=== PATIENT | female | born 1950 | race Caucasian/White ===

== ENCOUNTER 2018-02-12 07:16 | Observation (INO) | payer MEDICARE, OTHER ==
[~2018-02-12] VITALS: Ht 157.5 cm; Wt 70.3 kg
[~2018-02-12 07:16] MED LIST: CLONAZEPAM 0.50.5 M1 PO; DUONEB 2.5-0.5 M3 ML INH; PROAIR HFA8.5 GM INH; PROTONIX40 M1 PO; TRAZODONE HCL50 MG PO; VENTOLIN HFA 1818 GM INH
[2018-02-12 08:17] VITALS: BP 150/81
--- NOTE | 2018-02-12 14:04 | EKG ---
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1950 Requested By: Jc De La Torre Order Number: [id number] Reading MD: Germán Corona Measurements Intervals [place] Rate: 85 P: 39 ID: [id number] QRS: 19 QRSD: 93 T: -14 QT: 371 QTc: 442 Interpretive Statements Sinus rhythm Abnormal R-wave progression, early transition Borderline T abnormalities, inferior leads Compared to ECG 07/06/2006 16:09:29 T-wave abnormality now present Electronically Signed On 02-12-2018 14:04:15 CDT by Germán Corona [email or web address] <ELECTRONICALLY SIGNED> By: Germán Corona MD, FAC 02/12/18 1404 0746 0746 Germán Corona MD, [facility] /EPI
[2018-02-12 14:40] VITALS: BP 168/74
[2018-02-12 20:00] VITALS: BP 188/92
[2018-02-12 21:00] VITALS: BP 188/92; BP 211/92
[2018-02-12 21:30] VITALS: BP 211/92
[2018-02-13] VITALS (10 sets, daily range): BP systolic 154–172; BP diastolic 65–80
[2018-02-13 05:17] LABS: HEMATOCRIT 37.8 % (37.0-47.0); HEMOGLOBIN 12.3 gm/dL (12.0-15.0)
[2018-02-13 05:29] LABS: POTASSIUM 4.5 mmol/L (3.5-5.1)
--- NOTE | 2018-02-13 07:22 | OP ---
[address] [address] OPERATIVE REPORT Name: MARLA MOJICA Room: [address] M.R.#: [id number] Admission: 02/12/18 Attend Phys: Jc De La Torre MD Discharge: Date of : 54 Report #: [id number] THIS REPORT FOR: //name// CC: DARRIUS De La Torre DATE OF SERVICE: 02/12/2018 PREOPERATIVE DIAGNOSES: Right ovarian cyst, abnormal ultrasound of uterus. POSTOPERATIVE DIAGNOSES: Right ovarian cyst, abnormal ultrasound of uterus, benign pathology per intraoperative consultation from pathologist. PROCEDURE: Laparoscopic-assisted bilateral salpingo-oophorectomy, vaginal hysterectomy. SURGEON: Jc De La Torre MD LOAN DOCUMENTS CLOSER: [place] [address]. ESTIMATED BLOOD LOSS: 100 mL. ANESTHESIA: General by endotracheal tube. COMPLICATIONS: None. DESCRIPTION OF PROCEDURE: Operative permit was in order. The patient was placed under general anesthesia, put in the dorsal lithotomy position, prepped and draped in usual manner. SCDs were in place and functioning. The bladder was drained with a Beatty catheter. The cervix was exposed and the anterior lip of cervix grasped with single tooth tenaculum. Cervix was dilated to admit a uterine manipulator device. This was advanced into the endometrial cavity and balloon was inflated. Tenaculum and speculum removed and this area was further draped. Gloves were changed and attention turned towards the abdomen. A 2 cm transverse incision was made just below the umbilicus and dissection carried out to the fascia, which was grasped with 2 [facility] clamps. The fascia was then opened transversely. Peritoneum was identified and opened sharply with Metzenbaum scissors. A Maria Teresa trocar was inserted through this incision and balloon was inflated. Laparoscope was inserted through the trocar and the lower abdomen and periumbilical area were noted to be free from adhesions. Inspection of the upper abdomen showed multiple adhesions between the bowel and the anterior abdominal wall. No evidence of injury to the bowel was noted at this point. The patient was placed in Trendelenburg. Right and left surgical corsetier ports were placed using 5 mm trocars visualizing the peritoneal puncture to the laparoscope. Uterus anteflexed and [place] [address] OPERATIVE REPORT Name: MARLA MOJICA Room: [address]#: [id number] Admission: 02/12/18 Attend Phys: Jc De La Torre MD Discharge: Date of : 54 Report #: [id number] Both were free from adhesions. The left adnexa contained a normal atrophic appearing ovary. The right ovary was enlarged with an ovarian cyst. No evidence of tumor studding or other abnormalities were noted. Pelvic washings were performed. The right infundibulopelvic ligament was identified. It was doubly coagulated near the ovary and the mesosalpinx/mesovarium was then taken in several pedicles progressing up to a cornu on the right. The right round ligament was doubly coagulated and divided as well. Attention was then turned towards the left adnexa. The infundibulopelvic ligament on the left was identified. It was doubly coagulated at the level of the ovary and a piece of salpinx/mesovarium on this side was taken down in a similar fashion using the LigaSure device. The round ligament on the left was taken in similar fashion. All pedicles were carefully inspected and found to be dry and the laparoscopic initial portion of the procedure was complete. Ports were left in place, although the pneumoperitoneum was allowed to escape. Attention was then turned once again to the vagina. The uterine manipulator was removed. Anterior lip of the cervix was grasped with a thyroid Nona clamp and an incision made from 9-3 on the cervix. The vagina and bladder muscularis was pushed upward off the lower uterine segment and bladder pillars were taken on either side with Paola clamps. This was divided and ligated with 0 Vicryl transfixing stick tie. The incision was then carried posteriorly around the cervix and the posterior cul-de-sac peritoneum was identified, opened sharply and tagged for further reference. A Cori retractor was placed in the posterior cul-de-sac. The uterosacral ligaments were then clamped on either side with a Paola clamp, divided and ligated with 0 Vicryl transfixing stick tie and tagged for further reference. The first pedicle of the cardinal ligament was then taken on either side using a Paola clamp dividing with scissors and ligating with 0 Vicryl transfixing stick ties. The second pedicle was made on each side staying medial to the previous pedicle. Again, these were ligated with 0 Vicryl transfixing stick ties. The peritoneum was then entered anteriorly and the final pedicle on either side was taken by cross clamping the pedicle with a Paola clamp, dividing and removing the uterus and adnexa from the pelvis. These pedicles were ligated with 0 Vicryl transfixing stick ties. Inspection of the pedicles showed them all to be dry. The peritoneum was closed with an 0 Vicryl running stitch. The vagina was then closed with interrupted 0 Vicryl stick ties. A small 1.5 cm episiotomy like incision was made at the beginning of the vaginal portion of the procedure to allow better access to the cervix with hysterectomy. This was not bleeding, but was closed with a 2-0 Vicryl running locked stitch. The vagina was packed with 1-inch Nu Gauze and dienestrol cream. The urine was noted to be clear. Attention was returned to the abdominal cavity. Gloves were changed. The abdomen was reinsufflated. Pelvic floor viewed, found to be dry. No evidence to bowel, bladder, ureters or other structures was identified. The right and left executive assistant to general counsel ports were removed. Port sites noted to be dry and the Maria Teresa trocar was then removed. The fascia was closed under direct visualization with 0 Vicryl interrupted stick ties. Skin edges were approximated with 3-0 Vicryl subcuticular stitches and Dermabond. Final sponge and instrument counts were reported to me as correct. [place] [address] OPERATIVE REPORT Name: MARLA MOJICA Room: [address]#: [id number] Admission: 02/12/18 Attend Phys: Jc De La Torre MD Discharge: Date of : 54 Report #: [id number] clear. The patient was awakened from her anesthetic and taken to recovery room in satisfactory condition. <ELECTRONICALLY SIGNED> By: Jc De La Torre MD 02/13/18 0722 1652 [id number] mook Arzate
[2018-02-13] MEDS ORDERED: HYDROCODON-ACE1 EAC7 PO (07:55)
[2018-02-13] MEDS ORDERED: NORVASC5 MG PO (12:41)
[2018-02-13] MEDS ORDERED: COLACE100 MG PO (12:42)
--- NOTE | 2018-02-14 15:57 | CNG ---
[address] [address] CYTO-NONGYN REPORT PROCEDURE Name: MARLA SILVA Room: [address] Ruthie#: [id number] Admission: 02/12/18 Date of : 54 Discharge: 02/13/18 Report #: [id number] Path Case #: [id number] CYTOPATHOLOGY REPORT COLLECTION DATE: 02/12/2018 RECEIVED DATE: 02/12/2018 SUBMITTING PHYS: Dr. Jc De La Torre OTHER PHYS: Dr. Naveen Lieberman CLINICAL HISTORY: Right ovarian cyst; See also [id number] SPECIMEN(S) RECEIVED: A.Washing, Pelvic * * * * * * * * * * * * FINAL DIAGNOSIS: A. Washing, pelvic: - No malignant cells identified. - Mesothelial cells present (see comment). COMMENT: The accompanying hysterectomy and bilateral salpingo-oophorectomy specimen ([id number]) is negative for malignancy. Reviewed with Dr. Grant who agrees with the diagnosis. (MARQUEZ:pit; 02/14/2018) PATHOLOGIST: Dudley Lyons M.D. REPORT ELECTRONICALLY SIGNED BY: Dudley Lyons M.D. DATE/TIME: 02/14/2018 15:56 * * * * * * * * * * * * GROSS PATHOLOGY: A. Washing, Pelvic: The specimen is submitted unfixed, labeled "Marla Silva". Received by the Cytology Department is 35 mL of clear colorless fluid. One ThinPrep slide and a formalin fixed cell block were prepared. (mm 02.12.2018) SQL PROGRAMMER ANALYST(S): JODI Grover([facility]) INITIAL CPT CODE(S): A; 64984, 17398 Professional services performed by [facility] at [facility], [address] [place] [id number]. [facility] at [address] [place] [address], [address], [place] [address]. [place] [address] CYTO-NONGYN REPORT PROCEDURE Name: SILVAMARLA Room: [address] Domingo M.R.#: [id number] Admission: 02/12/18 Date of : 54 Discharge: 02/13/18 Report #: [id number] Path Case #: [id number], [address] [place] [address] PHONE: [phone] DIRECTOR: Yaniv Vazquez M.D. * * * END OF REPORT * * *
--- NOTE | 2018-02-14 16:00 | S ---
[place] [address] SURGICAL PATH RPT PROCEDURE Name: MARLA SILVA Room: [address] Ruthie#: [id number] Admission: 02/12/18 Date of : 54 Discharge: 02/13/18 Report #: [id number] Path Case #: [id number] PATHOLOGY REPORT COLLECTION DATE: 02/12/2018 RECEIVED DATE: 02/12/2018 SUBMITTING PHYS: Dr. Jc De La Torre OTHER PHYS: Dr. Naveen Lieberman SPECIMEN(S) RECEIVED: A.Uterus, cervix both tubes and ovaries with right ovarian cyst * * * * * * * * * * * * FINAL DIAGNOSIS: Uterus, cervix, both tubes and ovaries with right ovarian cyst: 19 gram uterus (including cervix and without bilateral adnexa) with; Right ovary: - Dominant benign, simple cyst compatible with epithelial inclusion cyst and multiple smaller epithelial inclusion cysts, and corpora albicantia, negative for malignancy. Left ovary: - Simple epithelial inclusion cyst and corpora albicantia, negative for malignancy. Bilateral fimbriated fallopian tubes: - Cystic Walthard's rests, negative for malignancy. Myometrium: - Medial calcification of blood vessels. Endometrium: - Atrophic pattern, negative for hyperplasia and atypia. Cervix: - Mild chronic cystic cervicitis, negative for dysplasia. (see comment) COMMENT: The accompanying pelvic washings ([id number]) is negative for malignancy. (MARQUEZ:; 02/14/2018) PATHOLOGIST: Dudley Lyons M.D. REPORT ELECTRONICALLY SIGNED BY: Dudley Lyosn M.D. DATE/TIME: 02/14/2018 16:00 * * * * * * * * * * * * GROSS PATHOLOGY: Received fresh from the operating room accompanied by a label marked "Marla Silva, uterus, cervix, both ovaries and fallopian tubes, right ovarian cyst". Dr. De La Tor[place] [address] SURGICAL PATH RPT PROCEDURE Name: MARLA SILVA Room: [address] Ruthie#: [id number] Admission: 02/12/18 Date of : 54 Discharge: 02/13/18 Report #: [id number] Path Case #: [id number] benign-appearing right ovarian cyst but has had family history of ovarian neoplasia and he requests intraoperative evaluation. The uterus has the attached cervix and attached left benign-appearing small ovary and benign-appearing fimbriated fallopian tube and the right adnexa are previously . The right adnexa weighs 12 grams and the externally smooth but cystic ovary measures 4.0 x 2.9 x 2.5 cm. The attached fimbriated segment of fallopian tube appears unremarkable. The ovary is cut into and it collapses, releasing clear fluid and the inside lining of the cyst is entirely smooth. The uterus measures 6.0 cm from fundus to cervix, has a girth of 3.0 x 2.0 cm in the fundal region and a girth of 3.0 x 2.4 cm at the ectocervical region. The ectocervix shows hemorrhagic intraoperative pinch nixon, but is otherwise unremarkable. The uterus is bivalved to reveal a flat atrophic appearing endometrial surface and several cuts into anterior and posterior myometrium reveals no nodules. The entire specimen is submitted for formalin fixation prior to further examination. (MARQUEZ:db; 02/12/2018) After overnight fixation, the uterus with attached cervix weighs 19 g, the attached left adnexa weighs 3 g, and the detached right adnexa weighs 4 g. The uterine serosa is smooth to shaggy and light marte to dark brown appearance. The cervical os measures 1.3 cm. The endocervical canal is corrugated and marte-brown appearance and measures 1.3 cm in length. The endometrial cavity is triangular, measuring 1.9 cm in length and up to 1.0 cm in width. The endometrium is light marte to red-brown appearance, measuring 0.1 cm in thickness. Serial sectioning reveals a pale marte, trabeculated myometrium measuring up to 1.1 cm in thickness with no grossly distinct lesions or nodules. The left adnexa consists of a fimbriated fallopian tube measuring 3.2 cm in length by 0.3 cm in diameter attached to a 1.6 x 1.0 x 1.0 cm ovary. Sectioning through the fallopian tube reveals a pinpoint lumen and appears grossly unremarkable. Sectioning through the ovary reveals a unilocular cystic structure filled with clear, colorless fluid measuring 0.8 cm in maximum dimension. Further sectioning reveals pale marte, normal ovarian stroma. The right adnexa consists of a fimbriated fallopian tube measuring 2.9 cm in length by 0.4 cm in diameter attached to a 2.6 x 1.3 x 1.3 cm cystic ovary. The fallopian tube displays multiple paratubal cysts ranging from 0.1 to 0.5 cm in maximum dimension. Sectioning through the fallopian tube reveals a pinpoint lumen. Sectioning through the ovary reveals several cystic structures ranging in size from 0.3 to 1.8 cm in maximum dimension. The cyst wall is smooth, pale marte and displays no grossly distinct papillary excrescences. Further sectioning reveals pale marte, normal ovarian stroma. The specimen is submitted representatively as follows: A1 12:00 cervix A2 6:00 cervix A3 Anterior endomyometrium [facility] [address] [place] [address] SURGICAL PATH RPT PROCEDURE Name: MARLA SILVA Room: [address] [place] Hendricks#: [id number] Admission: 02/12/18 Date of : 54 Discharge: 02/13/18 Report #: [id number] Path Case #: [id number] Posterior endomyometrium A5 Left adnexa A6-A7 Right adnexa. (DAC; 02/13/2018) INTRAOPERATIVE CONSULTATION (Maryjo Lyons M.D.): Gross intraoperative consult (uterus, cervix, both ovaries and fallopian tubes with right ovarian cyst): - Simple/benign ovarian cyst and no other evidence of neoplasia. Results are relayed directly to Dr. De La Torre in the operating room and a note is entered into the medial record. Testing performed by [facility] at [facility], [address] [place] [address]. CLINICAL HISTORY: Right ovarian cyst, abnormal ultrasound of uterus INITIAL CPT CODE(S): A; 88084, 36565 Professional services performed by [facility] at [facility], [facility] [place] [address]. Technical services performed by [facility] at [address] [place] [address], [address], [place] [address]. [facility] [address] [address] [place] [address] PHONE: [phone] DIRECTOR: Yaniv W. Taylor, M.D. * * * END OF REPORT * * *
== END 2018-02-13 14:00 | disposition home or self-care (01) ==
LOC: M.SUR 07:16 → M.ORTHSURG 07:18 → M.SUR 10:04 → M.ORTHSURG 12:10 → M.SUR 12:10 → M.ORTHSURG 02-13 14:00
PROVIDERS: ADMIT Specialist
DX: N83.201 Unspecified ovarian cyst, right side (principal); R10.9 Unspecified abdominal pain; N20.0 Calculus of kidney; M81.0 Age-related osteoporosis without current pathological fracture; J45.909 Unspecified asthma, uncomplicated; K21.9 Gastro-esophageal reflux disease without esophagitis; F41.9 Anxiety disorder, unspecified; F51.04 Psychophysiologic insomnia; N39.3 Stress incontinence (female) (male); N85.01 Benign endometrial hyperplasia; I10 Essential (primary) hypertension; N85.8 Other specified noninflammatory disorders of uterus; Z98.890 Other specified postprocedural states